=== PATIENT | male | born 1950 | race Caucasian/White ===

== ENCOUNTER 2022-04-08 05:10 | Day surgery (SDC) | payer MEDICARE, BC ==
[2022-04-01 15:43] LABS: ALBUMIN 4.1 G/DL (3.4-5.0); ALKALINE PHOSPHATASE 90 IU/L (46-116); BLOOD UREA NITROGEN 20 MG/DL (7-18); BUN/CREATININE RATIO 20.8 (5.4-32.0); CALCIUM 9.8 MG/DL (8.5-10.1); CHLORIDE 101 MMOL/L (99-107); CREATININE 0.96 MG/DL (0.60-1.10); PRE OP ALT 24 U/L (30-65); PRE OP ANION GAP 11 (8-16); PRE OP AST 18 U/L (10-37); PRE OP BILIRUB, TOTAL 0.3 MG/DL (0.0-1.0); PRE OP GLUCOSE 67 MG/DL (70-104); PRE OP POTASSIUM 3.8 MMOL/L (3.4-5.1); PRE OP SODIUM 139 MMOL/L (135-145); TOTAL CARBON DIOXIDE 26.8 MMOL/L (24-32); TOTAL PROTEIN 8.1 G/DL (6.4-8.2); eGFR 77 ML/MIN
[2022-04-01 15:44] LABS: BASOPHILS % (AUTO) 0.2 % (0-1); EOSINOPHILS # (AUTO) 0.2 X10'3 (0-0.9); EOSINOPHILS % (AUTO) 2.4 % (0-6); LYMPHOCYTES # (AUTO) 2.9 X10'3 (1.1-4.8); LYMPHOCYTES % (AUTO) 28.9 % (21-51); MEAN CORPUSCULAR HEMOGLOBIN 29.8 PG (27.0-31.0); MEAN CORPUSCULAR VOLUME 87.6 FL (78-98); MEAN PLATELET VOLUME 8.7 FL (7.4-10.4); MONOCYTES % (AUTO) 9.7 % (2-12); NEUTROPHILS # (AUTO) 5.9 X10'3 (1.8-7.7); NEUTROPHILS % (AUTO) 58.8 % (42-75); PRE OP HEMATOCRIT 40.2 % (42.0-52.0); PRE OP HEMOGLOBIN 13.7 g/dL (14.0-17.9); PRE OP PLATELET COUNT 293 X10'3 (140-440); RED BLOOD COUNT 4.59 X10'6 (4.70-6.10); RED CELL DISTRIBUTION WIDTH 13.2 % (11.5-14.5)
[~2022-04-08] VITALS: Ht 172.7 cm; Wt 88.0 kg
[~2022-04-08 05:10] MED LIST: ATOR40TA PO; CHLO25TA10 PO; CHOL100046 PO; LISI40TA13 PO; METF-900 PO; POTA-206 PO; ringers solution, lacted 1,000 ML IV SCH
[2022-04-08] MEDS ORDERED: famotidine 20mg tablet PO ONE (05:30)
[2022-04-08] MEDS ORDERED: ceFAZolin inj. 2,000 MG in dextrose 5%-water 100 ML IV ONE (05:30)
[2022-04-08] MEDS ORDERED: LIDOcaine 1% (10mg/ml) 2ml vial ONE (05:44)
[2022-04-08 06:09] VITALS: BP 148/75
[2022-04-08] MEDS ORDERED: BUPIVAcaine/PF 2.5mg/ml (0.25%) 10ml vial ONE (06:45)
[2022-04-08] MEDS ORDERED: LIDOcaine 1% 30ml preserv. free vial ONE (07:38)
[2022-04-08] MEDS ORDERED: fentaNYL/PF 50MCG/1 ML 2ML syringe ONE (07:46)
[2022-04-08] MEDS ORDERED: midazolam 1 mg/ML 2ml injection ONE (07:47)
[2022-04-08] MEDS ORDERED: ketorolac trometh. 30mg/ml inj. ONE (07:50)
[2022-04-08 08:18] VITALS: BP 154/78
--- NOTE | 2022-04-08 08:18 | NUR ---
Received from OR via [facility] , accompanied by Anesthesiologist ALFONSO and report given by Anesthesiolgist. PATIENT WITH WRAP TO RIGHT WRIST THAT IS CDI. FINGERS PWD AND HAS NO C/.O PAIN. VSS. Addendum: 04/08/22 at 0825 by Franc Pringle RN, RN Amended: Links added.
[2022-04-08 08:20] VITALS: BP 130/75
[2022-04-08 08:30] VITALS: BP 138/69
--- NOTE | 2022-04-08 08:58 | NUR ---
ALL DISCHARGE CRITERIA HAS BEEN MET. VSS, PAIN AT A TOLERABLE LEVEL, VOIDING AND ABLE TO SAFELY AMBULATE AND TRANSFER SELF. IV TAKEN OUT WITHOUT ANY COMPLICATIONS. ALL DISCHARGE INSTRUCTIONS COVERED WITH PATIENT AND ALL QUESTIONS ANSWERED. PATIENT TAKEN OUT VIA WHEELCHAIR TO PERSONAL VEHICLE WHERE FAMILY/FRIEND DROVE PATIENT HOME. Addendum: 04/08/22 at 0858 by Franc Pringle RN, RN Amended: Links added.
== END 2022-04-08 08:38 | disposition home or self-care (01) ==
LOC: PAS 05:10
PROVIDERS: ATTEND Orthopaedic Surgery Hand Surgery
DX: G56.01 Carpal tunnel syndrome, right upper limb (principal); E11.9 Type 2 diabetes mellitus without complications; I10 Essential (primary) hypertension; Z79.899 Other long term (current) drug therapy; Z98.890 Other specified postprocedural states
CPT/HCPCS: 36415; 64721; 80053; 82948; 85025; 93005; J0690; J1885; J2250; J3010; J3490; J7030; J7060; J7120; Z7506; Z7512; A4215; A6446; A6449